=== PATIENT | female | born 1980 | race Caucasian/White ===

== ENCOUNTER 2016-11-25 12:23 | Outpatient (CLI) ==
[2015-11-24 13:59] VITALS: BMI 23.8
[2016-11-25 12:55] LABS: BASOPHILS % (AUTO) 0.3 % (0.0-3.0); EOSINOPHILS # (AUTO) 0.1 K/ul (0.0-0.7); EOSINOPHILS % (AUTO) 1.2 % (0.0-7.0); HEMATOCRIT 36.7 % (37.0-47.0); HEMOGLOBIN 12.5 g/dl (12.0-16.0); IMMATURE GRANULOCYTE % (AUTO) 0.3 % (0.0-5.0); LYMPHOCYTES # (AUTO) 2.5 K/uL (0.60-3.4); LYMPHOCYTES % (AUTO) 41.2 (10.0-50.0); MEAN CORPUSCULAR HEMOGLOBIN 30.3 pg (27.0-31.0); MEAN CORPUSCULAR HGB CONC 34.1 (31.8-35.4); MEAN CORPUSCULAR VOLUME 89.1 fl (81.0-99.0); MONOCYTES # (AUTO) 0.6 K/uL (0.4-2.0); MONOCYTES % (AUTO) 9.1 (0-10); NEUTROPHILS # (AUTO) 2.9 K/ul (2.0-6.9); NEUTROPHILS % (AUTO) 47.9; PLATELET COUNT 197 10^3/uL (140-440); RED BLOOD COUNT 4.12 10^6/ul (4.20-5.40); WHITE BLOOD COUNT 6.05 K/ul (4.6-10.2)
--- NOTE | 2016-11-25 13:05 | CT ---
EXAM: CT head without contrast. HISTORY: Slurred speech. Left ear numbness. Extremity numbness. COMPARISON: 09/20/2010. TECHNIQUE: Multiple axial images of the brain were obtained from the skull base through the vertex without intravenous contrast. FINDINGS: There is no intracranial hemorrhage or extraaxial collection. The hendricks-white differentia tion is maintained without evidence for acute large vascular territory infarction. The cortical sul ci and basal cisterns are well visualized. There is no hydrocephalus, mass effect, or midline shift . The paranasal sinuses and mastoid air cells are clear. The calvarium is intact. Since the prior study, there has been no significant interval change. IMPRESSION: No acute intracranial abnormality. Consider MRI if symptoms persist.
[2016-11-25 13:35] LABS: ALBUMIN 3.9 g/dL (3.4-5.0); ALBUMIN/GLOBULIN RATIO 1.18; BILIRUBIN,TOTAL 0.35 mg/dL (0.00-1.20); BUN/CREATININE RATIO 17.56; CALCIUM 8.7 mg/dL (8.2-10.2); CHOL/HDL RATIO 2.8 (4.5-5.5); CREATININE 0.74 mg/dL (0.60-1.30); TOTAL PROTEIN 7.2 g/dL (6.4-8.2)
== END 2016-11-25 12:24 | disposition home or self-care (01) ==
LOC: RAD 12:23
PROVIDERS: ATTEND Nurse Practitioner Family
DX: R07.89 Other chest pain (principal); R42 Dizziness and giddiness; R47.81 Slurred speech; R26.89 Other abnormalities of gait and mobility; R51 Headache
CPT/HCPCS: 36415; 80053; 80061; 84443; 85025; 93005; 93010

== ENCOUNTER 2016-12-27 12:38 | Emergency (ER) ==
[2016-12-27 12:38] VITALS: BMI 23.8
[2016-12-27 12:43] VITALS: BP 138/89; TEMP 97.6
[2016-12-27] MEDS ORDERED: NORCO 10-325 PO STA (12:53)
[2016-12-27] MEDS ORDERED: TORADOL IM STA (12:53)
--- NOTE | 2016-12-27 13:26 | ED.PDOC ---
General ED Provider: Dr. LINA PARSON Chief Complaint: Back Pain Stated Complaint: back pain coccyx Time Seen by Physician: 12:40 (seen with paulie at all times ) Mode of Arrival: Walk-In Information Source: Patient Exam Limitations: No limitations [facility] and Triage Documentation Reviewed and Agree: Yes Musculoskeletal Complaint Exam - Back Pain Complaint/Exam Mechanism of Injury: Reports: No known trauma Onset/Duration: 1 day Symptoms Are: Still present Timing: Constant Initial Severity: Moderate Current Severity: Moderate Location: Reports: Discrete Character: Reports: Aching Aggravating: Reports: None Alleviating: Reports: None Associated Signs and Symptoms: Denies: Swelling, Redness, Bruising, Fever, Weakness, Numbness, Tingling, Abdominal pain, Flank pain, Bladder incontinence, Bowel incontinence, Weight loss, Pain with weight bearing Related History: Reports: Similar episode TAD Risk Factors: Reports: None AAA Risk Factors: Reports: None Cauda Equina Risk Factors: Reports: None Epidural Abcess Risk Factors: Reports: None Related Surgical History: Reports: None Focal Tenderness: No Scoliosis: No Lordosis: No Kyphosis: No SLR Test: Right Negative, Left Negative Hip Motion Testing Pain: Right Negative, Left Negative Focal Weakness: Present: None Focal Sensory Loss: Present: None Gait: Present: Normal Differential Diagnoses: Strain, Sprain Review of Systems - Review Of Systems Constitutional: Reports: No symptoms Eyes: Reports: No symptoms Ears, Nose, Mouth, Throat: Reports: No symptoms Respiratory: Reports: No symptoms Cardiac: Reports: No symptoms GI: Reports: No symptoms : Reports: No symptoms Musculoskeletal: Reports: Back pain (coccyx) Skin: Reports: No symptoms Neurological: Reports: No symptoms Endocrine: Reports: No symptoms Hematologic/Lymphatic: Reports: No symptoms All Other Systems: Reviewed and Negative Past Medical History - Past Medical History Previously Healthy: Yes Endocrine: Reports: None Cardiovascular: Reports: None Respiratory: Reports: None Hematological: Reports: None Gastrointestinal: Reports: None Genitourinary: Reports: None Neuro/Psych: Reports: None Musculoskeletal: Reports: None Cancer: Reports: None Last Menstrual Period: none - Surgical History General Surgical History: Reports: Hysterectomy - Family History Family History: Reports: Unknown - Social History Smoking Status: Never smoker Hx Substance Use: No Alcohol Screening: None Physical Exam - Physical Exam Appearance: Well-appearing, No pain distress, Well-nourished Eyes: VICENTA, EOMI, Conjunctiva clear ENT: Ears normal, Nose normal, Oropharynx normal Respiratory: Airway patent, Breath sounds clear, Breath sounds equal, Respirations nonlabored Cardiovascular: RRR, Pulses normal, No rub, No murmur GI/: Soft, Nontender, No masses, Bowel sounds normal, No Organomegaly Musculoskeletal: Normal strength, ROM intact, No edema, No calf tenderness Skin: Warm, Dry, Normal color Neurological: Sensation intact, Motor intact, Reflexes intact, Cranial nerves intact, Alert, Oriented Psychiatric: Affect appropriate, Mood appropriate Critical Care Note - Critical Care Note Total Time (mins): 0 Course - Course Orders, Labs, Meds: Orders Category Date Time Status Hydrocodone Bit/Acetaminophen [Butler 10-325] MEDS 12/27/16 12:53 Stat 1 tab PO ONCE STA Ketorolac Tromethamine [Toradol] MEDS 12/27/16 12:53 Stat 60 mg IM ONCE STA CT PELVIS W/O CONTRAST Stat RADS 12/27/16 12:53 Ordered Medications Discontinued Medications Generic Name Dose Route Start Last Admin Trade Name Freq PRN Reason Stop Dose Admin Acetaminophen/Hydrocodone Bitart 1 tab 12/27/16 12:53 12/27/16 13:01 Butler 10-325 PO 12/27/16 12:54 1 tab ONCE STA Administration Ketorolac Tromethamine 60 mg 12/27/16 12:53 12/27/16 13:01 Toradol IM 12/27/16 12:54 60 mg ONCE STA Administration Vital Signs: Temp Pulse Resp BP Pulse Ox 12/27/16 12:38 97.6 F 99 H 18 138/89 99 Departure - Departure Time of Disposition: 14:00 Disposition: HOME SELF-CARE Discharge Problem: Backache, Coccyx pain Instructions: Coccyx Injury (ED) Condition: Good Pt referred to PMD for follow-up: Yes Additional Instructions: Please call your Family Physician as soon as possible to schedule a follow-up appointment. Prescriptions: Hydrocodone/Acetaminophen [Butler 10-325 Tablet] 1 each PO Q8HR #6 tablet Allergies/Adverse Reactions: Allergies erythromycin base Adverse Reaction (Verified 12/27/16 12:43) Home Medications: Ambulatory Orders Sumatriptan Succinate [Imitrex] 100 mg PO DIRECTED PRN 03/07/15 Clonazepam [Klonopin] 1 mg PO TID #90 12/21/15 Hydrocodone/Acetaminophen [Butler 10-325 Tablet] 1 each PO Q8HR #6 tablet Disposition Discussed With: Patient, Family
--- NOTE | 2016-12-27 13:34 | CT ---
EXAM: CT of the pelvis without contrast History: Coccyx pain. Technique: Multiplanar CT images through the pelvis were obtained without the administration of IV contrast Findings: Uterus is not seen. No bladder wall thickening. Moderate stool within the rectosigmoid colon. Visualized appendix is not inflamed. No acute fracture or dislocation. Bilateral hip joint spaces are preserved. Bilateral sacroiliac j oints are intact. No osseous abnormality of the coccyx. Impression: 1. No acute fracture. 2. Moderate stool seen distending the rectosigmoid colon.
== END 2016-12-27 13:40 | disposition home or self-care (01) ==
LOC: ED 12:38
DX: M54.5 Low back pain (principal)
CPT/HCPCS: 96372; 99282

== ENCOUNTER 2017-05-28 13:31 | Outpatient (CLI) | END 2017-05-28 13:32 | disposition home or self-care (01) | LOC: LAB 13:31 | PROVIDERS: ATTEND Nurse Practitioner Family | DX: F41.9 Anxiety disorder, unspecified (principal); R30.0 Dysuria | CPT/HCPCS: 36415; 80053; 80306; 81001; 84439; 84443; 85025; 87086; 87186 ==

== ENCOUNTER 2017-06-12 13:10 | Outpatient (CLI) ==
--- NOTE | 2017-06-12 13:36 | DI ---
EXAM: Four views of the lumbar spine HISTORY: Back pain with right-sided sciatica. COMPARISON: Lumbar spine x-ray 11/23/2012 and MRI 12/31/2012 FINDINGS: There is no acute compression fracture or subluxation. There is no lytic or blastic lesion . Vertebral body height and disc space are maintained. There is mild facet arthropathy. The soft ti ssues are unremarkable. IMPRESSION: Mild facet arthropathy
== END 2017-06-12 13:11 | disposition home or self-care (01) ==
LOC: RAD 13:10
PROVIDERS: ATTEND Nurse Practitioner Family
DX: M54.41 Lumbago with sciatica, right side (principal)

== ENCOUNTER 2017-06-19 06:59 | Outpatient (CLI) ==
--- NOTE | 2017-06-19 10:50 | MRI ---
EXAM: Lumbar spine MRI without contrast. HISTORY: Lumbar inflammatory spondyloarthropathy. COMPARISON: Lumbar spine radiographs 06/12/2018 and lumbar spine MRI 12/21/2012. TECHNIQUE: Multiplanar, multisequence MR images were acquired of the lumbar spine without contrast. FINDINGS: Conus medullaris ends at L1-2 and has normal signal intensity. There is minor mid lumbar levoscoliosis centered at L3-4. The lumbar vertebra are normal in height and intrinsic bone marrow s ignal. The intervertebral discs are normal in height and signal intensity. There are no paravertebra l masses. The sacroiliac joints are unremarkable. Several follicles are noted in each ovary which i s normal for the patient's age. T12-L1, L1-2: The intervertebral discs are normal. L2-3: The intervertebral disc is normal. There is minor left facet arthropathy with a tiny degenera tive cyst and tiny left facet effusion. L3-4: The intervertebral disc is normal. L4-5: There is a minor disc bulge that minimally narrows the inferior neural foramina bilaterally. There is mild right neural foraminal stenosis. L5-S1: There is a small posterior disc bulge without central canal stenosis. IMPRESSION: 1. Minimal lumbar degenerative spondylosis and minor lumbar levoscoliosis centered at L3-4. 2. No lumbar disc herniations, pars interarticularis defects or central canal stenosis.
== END 2017-06-19 07:00 | disposition home or self-care (01) ==
LOC: RAD 06:59
PROVIDERS: ATTEND Nurse Practitioner Family
DX: M46.96 Unspecified inflammatory spondylopathy, lumbar region (principal); M54.41 Lumbago with sciatica, right side

== ENCOUNTER 2018-02-05 22:19 | Emergency (ER) | payer OTHER ==
[2018-02-05] MEDS ORDERED: DECADRON 4 MG/ML SDV IM STA (22:32)
[2018-02-05] MEDS ORDERED: LIDOCAINE HCL 1% SDV IM STA (22:32)
[2018-02-05] MEDS ORDERED: ROCEPHIN IM STA (22:32)
[2018-02-05 22:34] VITALS: BP 143/87; TEMP 98.4; BMI 27.8
[2018-02-05] MEDS ORDERED: ALBUTEROL 0.042% NEB NEB STA (22:34)
--- NOTE | 2018-02-05 22:38 | ED.PDOC ---
General ED Provider: Dr. SYED NERI-ER Chief Complaint: Cough Stated Complaint: my sinuses hurt and im coughing Time Seen by Physician: 22:36 Mode of Arrival: Walk-In Information Source: Patient Exam Limitations: No limitations Primary Care Provider: FARRAH CRONIN Nursing and Triage Documentation Reviewed and Agree: Yes Does patient meet sepsis criteria?: No System Inflammatory Response Syndrome: Not Applicable Sepsis Protocol: For patient's 13 years and over: Temp is 96.8 and below OR 101 and greater Pulse >90 BPM Resp >20/minute Acutely Altered Mental Status Are patient's symptoms suggestive of a new infection, such as: -Pneumonia -Skin, Soft Tissue -Endocarditis -UTI -Bone, Joint Infection -Implantable Device -Acute Abdominal Infection -Wound Infection -Meningitis -Blood Stream Catheter Infection -Unknown Respiratory Complaint Exam - Respiratory Complaint/Exam Onset/Duration: 2 weeks Symptoms Are: Still present Initial Severity: Mild Current Severity: Moderate Location: Chest Character: Reports: Productive cough Aggravating: Reports: URI Associated Signs and Symptoms: Reports: URI, Nasal congestion, Sinus discomfort Related History: Reports: Similar episode History of Healthcare-Acquired Pneumonia: No Home Oxygen Use: No Recent Stress Test: No Recent Echo/LV Function: No Respiratory Distress: None Inadequate Respiratory Effort: No Dysphagia Present: No Stridor Present: No JVD Present: No Accessory Muscle Use: No Retractions: Not Present Diminished Breath Sounds: No Sinus Tenderness: None Grunting Respirations: No Kussmaul Respirations: No Differential Diagnoses: Pneumonia, Bronchitis, Sinusitis, URI Review of Systems - Review Of Systems Constitutional: Reports: No symptoms Eyes: Reports: No symptoms Ears, Nose, Mouth, Throat: Reports: Nose discharge Respiratory: Reports: Cough Cardiac: Reports: No symptoms GI: Reports: No symptoms : Reports: No symptoms Musculoskeletal: Reports: No symptoms Skin: Reports: No symptoms Neurological: Reports: No symptoms Endocrine: Reports: No symptoms Hematologic/Lymphatic: Reports: No symptoms All Other Systems: Reviewed and Negative Past Medical History - Past Medical History Previously Healthy: Yes Endocrine: Reports: None Cardiovascular: Reports: None Respiratory: Reports: None Hematological: Reports: None Gastrointestinal: Reports: None Genitourinary: Reports: None Neuro/Psych: Reports: None Musculoskeletal: Reports: None Cancer: Reports: None Last Menstrual Period: 2012 - Surgical History General Surgical History: Reports: Hysterectomy - Family History Family History: Reports: Unknown - Social History Smoking Status: Never smoker Hx Substance Use: No Alcohol Screening: None - Immunizations Tetanus Shot up to Date: Yes (2-3 years ago) Physical Exam - Physical Exam Appearance: Well-appearing, No pain distress, Well-nourished Eyes: VICENTA, EOMI, Conjunctiva clear ENT: Rhinorrhea Neck: Supple Respiratory: Airway patent, Breath sounds clear, Breath sounds equal, Respirations nonlabored Cardiovascular: RRR, Pulses normal, No rub, No murmur GI/: Soft, Nontender, No masses, Bowel sounds normal, No Organomegaly Musculoskeletal: Normal strength, ROM intact, No edema, No calf tenderness Skin: Warm, Dry, Normal color Neurological: Sensation intact, Motor intact, Reflexes intact, Cranial nerves intact, Alert, Oriented Psychiatric: Affect appropriate, Mood appropriate Interpretation - Radiology Interpretation Radiology Interpretation By: Radiologist Radiology Results: Negative Exam Interpreted: CT Scan Critical Care Note - Critical Care Note Total Time (mins): 0 Course - Course Hematology/Chemistry: 02/05/18 22:44 02/05/18 22:44 Orders, Labs, Meds: Lab Review 02/05/18 02/05/18 02/05/18 22:41 22:44 22:44 WBC 9.69 RBC 4.20 Hgb 12.8 Hct 37.5 MCV 89.3 MCH 30.5 MCHC 34.1 RDW Coeff of Enedelia 12.3 Plt Count 268 Immature Gran % (Auto) 0.4 Neut % (Auto) 58.9 Lymph % (Auto) 27.9 [place] % (Auto) 9.2 Eos % (Auto) 3.1 Baso % (Auto) 0.5 Immature Gran # (Auto) 0.0 Neut # (Auto) 5.7 Lymph # (Auto) 2.7 [place] # (Auto) 0.9 Eos # (Auto) 0.3 Baso # (Auto) 0.1 D-Dimer (Manual) 303.19 Sodium 139.9 Potassium 3.16 L Chloride 103.8 Carbon Dioxide 25.6 Anion Gap 13.66 BUN 8.1 Creatinine 0.70 Estimated GFR (MDRD) 95.00 BUN/Creatinine Ratio 11.57 Glucose 96.8 Calcium 9.52 Total Bilirubin 0.42 AST 31.2 ALT 15.5 Alkaline Phosphatase 52.0 Total Protein 8.22 H Albumin 4.72 Globulin 3.50 Albumin/Globulin Ratio 1.34 Orders Category Date Time Status NEBULIZER TREATMENT Stat CARDIO 02/05/18 22:34 Completed BLOOD CULTURE (ED ONLY) Stat LAB 02/05/18 22:44 Received CBC W/ AUTO DIFF Stat LAB 02/05/18 22:44 Completed COMPREHENSIVE METABOLIC PANEL Stat LAB 02/05/18 22:44 Completed D-DIMER Stat LAB 02/05/18 22:41 Completed Albuterol Sulfate 0.042% Neb [Albuterol 0.042% Neb] MEDS 02/05/18 22:34 Discontinued 1 vial NEB ONCE STA Ceftriaxone Sodium [Rocephin] MEDS 02/05/18 22:32 Discontinued 1 gm IM ONCE STA Dexamethasone 4 mg/ml Inj [Decadron 4 mg/ml Sdv] MEDS 02/05/18 22:32 Discontinued 8 mg IM ONCE STA Lidocaine HCl/Pf [Lidocaine HCl 1% Sdv] MEDS 02/05/18 22:32 Discontinued 2.1 ml IM ONCE STA Potassium Chloride [K-Dur] MEDS 02/05/18 23:12 Discontinued 40 meq PO ONCE STA CT CHEST W/O CONTRAST Stat RADS 02/05/18 22:[address] SINUSES W/O CONTRAST Stat RADS 02/05/18 22:33 Completed Medications Discontinued Medications Generic Name Dose Route Start Last Admin Trade Name Freq PRN Reason Stop Dose Admin Albuterol Sulfate 1 vial 02/05/18 22:34 02/05/18 23:05 Albuterol 0.042% Neb NEB 02/05/18 22:35 1 vial ONCE STA Administration Ceftriaxone Sodium 1 gm 02/05/18 22:32 02/05/18 23:06 Rocephin IM 02/05/18 22:33 1 gm ONCE STA Administration Dexamethasone Sodium Phosphate 8 mg 02/05/18 22:32 02/05/18 23:02 Decadron 4 Mg/Ml Sdv IM 02/05/18 22:33 8 mg ONCE STA Administration Lidocaine HCl 2.1 ml 02/05/18 22:32 02/05/18 23:06 Lidocaine Hcl 1% Sdv IM 02/05/18 22:33 2.1 ml ONCE STA Administration Potassium Chloride 40 meq 02/05/18 23:12 02/05/18 23:17 K-Dur PO 02/05/18 23:13 40 meq ONCE STA Administration Vital Signs: Temp Pulse Resp BP Pulse Ox 02/05/18 22:20 98.4 F 123 H 20 143/87 H 100 Departure - Departure Time of Disposition: 00:07 Disposition: HOME SELF-CARE Discharge Problem: Bronchitis Instructions: Acute Bronchitis (ED) Condition: Good Pt referred to PMD for follow-up: Yes IPMP verified?: No Additional Instructions: augmenitn 875mg bid x 7 days--medrol dose pack--f/u with pcp Allergies/Adverse Reactions: Allergies tramadol Allergy (Intermediate, Verified 02/05/18 22:27) Headache erythromycin base Adverse Reaction (Verified 02/05/18 22:28) Vomiting Home Medications: Ambulatory Orders Oxymetazoline HCl [Nasal [place]] 1 spray NS TID PRN 02/05/18 Disposition Discussed With: Patient, Family
[2018-02-05] MEDS ORDERED: K-DUR PO STA (23:12)
--- NOTE | 2018-02-05 23:21 | CT ---
Exam: CT of the chest without contrast History: Cough and chest congestion Technique: [address] of the chest without intravascular contrast FINDINGS: The lung windows show no pulmonary parenchymal abnormalities. Normal heart, great vessels and pericardium. No chest wall abnormalities are seen. No abnormalities of the upper abdomen. Impression: 1. Normal noncontrast CT chest.
--- NOTE | 2018-02-05 23:22 | CT ---
EXAM: CT sinuses without intravenous contrast 02/05/2018. Sagittal and coronal reformatted images o btained HISTORY: Sinus pressure COMPARISON: 11/25/2016 FINDINGS: The facial bones appear intact without evidence of fracture. Normal anatomic alignment is maintained. The paranasal sinuses are normally aerated. No fluid or mucosal thickening. The ostiomeatal units ap pear widely patent. The superficial soft tissues show no acute abnormality. IMPRESSION: No acute process.
== END 2018-02-06 00:10 | disposition home or self-care (01) ==
LOC: ED 22:19
DX: J40 Bronchitis, not specified as acute or chronic (principal)
CPT/HCPCS: 36415; 80053; 85025; 85379; 87040; 94640; 96372; 99283

== ENCOUNTER 2018-05-25 14:44 | Emergency (ER) | payer MEDICAID, OTHER ==
[2018-05-25 14:53] VITALS: BP 134/93; TEMP 98; BMI 29.1
[2018-05-25] MEDS: DECADRON 4 MG/ML SDV IM STA (15:35)
[2018-05-25] MEDS: LIDOCAINE HCL 1% SDV IM STA (15:36)
[2018-05-25] MEDS: ROCEPHIN IM STA (15:36)
--- NOTE | 2018-05-25 15:39 | DI ---
Exam: Two views of the chest. Comparison: CT chest performed 02/05/2018. Reason for exam: Cough. FINDINGS: No pneumothorax, pleural effusion, or focal consolidation. The cardiac silhouette is not enlarged. The imaged osseous structures appear grossly unremarkable without acute fracture. Impression: No acute cardiopulmonary process.
--- NOTE | 2018-05-25 15:48 | CT ---
Exam: CT sinuses without intravenous contrast. Comparison: 02/05/2018. Reason for exam: Pain. FINDINGS: Mild mucosal thickening is seen in the ethmoid sinuses. No discrete air fluid levels are seen in the maxillary sinuses, or sphenoid sinuses. The frontal sinuses do not appear pneumatized. This finding is not changed from previous study performed on 02/05/2018. Impression: Mucosal thickening in the ethmoid sinuses may represent sinus disease. No discrete air fluid levels are seen.
--- NOTE | 2018-05-25 16:13 | ED.PDOC ---
General ED Provider: Dr. LINA PARSON Chief Complaint: Respiratory Complaint Stated Complaint: cough, chronic has had nasal stuffiness till 03/05 Time Seen by Physician: 14:45 (nurses present lj) Mode of Arrival: Walk-In Information Source: Patient Exam Limitations: No limitations Primary Care Provider: DEVIN LAWRENCE Nursing and Triage Documentation Reviewed and Agree: Yes Does patient meet sepsis criteria?: No System Inflammatory Response Syndrome: Not Applicable Sepsis Protocol: For patient's 13 years and over: Temp is 96.8 and below OR 101 and greater Pulse >90 BPM Resp >20/minute Acutely Altered Mental Status Are patient's symptoms suggestive of a new infection, such as: -Pneumonia -Skin, Soft Tissue -Endocarditis -UTI -Bone, Joint Infection -Implantable Device -Acute Abdominal Infection -Wound Infection -Meningitis -Blood Stream Catheter Infection -Unknown EENT Complaint Exam - Nasal Complaint/Exam Onset/Duration: since february has had congestion Symptoms Are: Still present Timing: Intermittent Initial Severity: Mild Current Severity: Mild Location: Bilateral Aggravating: Reports: None Alleviating: Reports: None Associated Signs and Symptoms: Reports: Nasal congestion, Sinus pain, Nasal discharge. Denies: Bruising, Hematuria, Hematochezia, Foreign body, Abnormal coags Related History: Reports: Similar episode Nasal Surgical History: Reports: None Foreign Body Present: No Septal Hematoma: No Differential Diagnoses: Allergic Rhinitis, Sinusitis Review of Systems - Review Of Systems Constitutional: Reports: No symptoms Eyes: Reports: No symptoms Ears, Nose, Mouth, Throat: Reports: Nose discharge Respiratory: Reports: No symptoms Cardiac: Reports: No symptoms GI: Reports: No symptoms : Reports: No symptoms Musculoskeletal: Reports: No symptoms Skin: Reports: No symptoms Neurological: Reports: No symptoms Endocrine: Reports: No symptoms Hematologic/Lymphatic: Reports: No symptoms All Other Systems: Reviewed and Negative Past Medical History - Past Medical History Previously Healthy: Yes Endocrine: Reports: None Cardiovascular: Reports: None Respiratory: Reports: None Hematological: Reports: None Gastrointestinal: Reports: None Genitourinary: Reports: None Neuro/Psych: Reports: None Musculoskeletal: Reports: None Cancer: Reports: None Last Menstrual Period: na - Surgical History General Surgical History: Reports: Hysterectomy - Family History Family History: Reports: Unknown - Social History Smoking Status: Never smoker Hx Substance Use: No Alcohol Screening: None - Immunizations Tetanus Shot up to Date: Yes Physical Exam - Physical Exam Appearance: Well-appearing, No pain distress, Well-nourished Eyes: VICENTA, EOMI, Conjunctiva clear ENT: Rhinorrhea (sinuses maxillary tender ) Respiratory: Airway patent, Breath sounds clear, Breath sounds equal, Respirations nonlabored Cardiovascular: RRR, Pulses normal, No rub, No murmur GI/: Soft, Nontender, No masses, Bowel sounds normal, No Organomegaly Musculoskeletal: Normal strength, ROM intact, No edema, No calf tenderness Skin: Warm, Dry, Normal color Neurological: Sensation intact, Motor intact, Reflexes intact, Cranial nerves intact, Alert, Oriented Psychiatric: Affect appropriate, Mood appropriate Critical Care Note - Critical Care Note Total Time (mins): 0 Course - Course Hematology/Chemistry: 05/25/18 15:33 05/25/18 15:33 Orders, Labs, Meds: Lab Review 05/25/18 05/25/18 05/25/18 15:10 15:33 15:33 WBC 10.61 H RBC 4.67 Hgb 13.9 Hct 41.1 MCV 88.0 MCH 29.8 MCHC 33.8 RDW Coeff of Enedelia 11.9 Plt Count 282 Immature Gran % (Auto) 0.5 Neut % (Auto) 66.9 Lymph % (Auto) 22.0 [place] % (Auto) 6.2 Eos % (Auto) 3.9 Baso % (Auto) 0.5 Immature Gran # (Auto) 0.1 Neut # (Auto) 7.1 H Lymph # (Auto) 2.3 [place] # (Auto) 0.7 Eos # (Auto) 0.4 Baso # (Auto) 0.1 Sodium 137.2 Potassium 3.93 Chloride 103.7 Carbon Dioxide 26.6 Anion Gap 10.83 BUN 8.0 Creatinine 0.62 Estimated GFR (MDRD) 109.00 BUN/Creatinine Ratio 12.90 Glucose 100.6 Calcium 9.01 Total Bilirubin 0.31 AST 22.8 ALT 11.5 Alkaline Phosphatase 54.6 Total Protein 7.89 Albumin 4.63 Globulin 3.26 Albumin/Globulin Ratio 1.42 Influ A Molecular Assay Negative by naat Influ B Molecular Assay Negative by naat Orders Category Date Time Status CBC W/ AUTO DIFF Stat LAB 05/25/18 15:33 Completed COMPREHENSIVE METABOLIC PANEL Stat LAB 05/25/18 15:33 Completed FLU A/B MOLECULAR Stat LAB 05/25/18 15:10 Completed MOLECULAR GROUP A STREP Stat LAB 05/25/18 15:10 Completed Ceftriaxone Sodium [Rocephin] MEDS 05/25/18 15:11 Discontinued 1 gm IM ONCE STA Dexamethasone 4 mg/ml Inj [Decadron 4 mg/ml Sdv] MEDS 05/25/18 15:11 Discontinued 8 mg IM ONCE STA Lidocaine HCl/Pf [Lidocaine HCl 1% Sdv] MEDS 05/25/18 15:11 Discontinued 2.1 ml IM ONCE STA CHEST, 2 VIEWS PA & LAT Stat RADS 05/25/18 15:[address] SINUSES W/O CONTRAST Stat RADS 05/25/18 15:11 Completed Medications Discontinued Medications Generic Name Dose Route Start Last Admin Trade Name Ally DILLARDN Reason Stop Dose Admin Ceftriaxone Sodium 1 gm 05/25/18 15:11 05/25/18 15:36 Rocephin IM 05/25/18 15:12 1 gm ONCE STA Administration Dexamethasone Sodium Phosphate 8 mg 05/25/18 15:11 05/25/18 15:35 Decadron 4 Mg/Ml Sdv IM 05/25/18 15:12 8 mg ONCE STA Administration Lidocaine HCl 2.1 ml 05/25/18 15:11 05/25/18 15:36 Lidocaine Hcl 1% Sdv IM 05/25/18 15:12 5 ml ONCE STA Administration Vital Signs: Temp Pulse Resp BP Pulse Ox 05/25/18 14:45 98 F 88 16 134/93 H 98 Departure - Departure Time of Disposition: 16:13 Disposition: HOME SELF-CARE Discharge Problem: Sinusitis Qualifiers: Sinusitis location: maxillary Recurrence: non-recurrent Instructions: Sinusitis (ED), Rhinosinusitis (ED), Rhinosinusitis (DC) Condition: Good Pt referred to PMD for follow-up: Yes IPMP verified?: No Additional Instructions: Please call your Family Physician as soon as possible to schedule a follow-up appointment. Prescriptions: Amoxicillin 500 mg PO Q8HR #30 tablet Prednisone 10 mg PO DAILYWM #7 tablet Allergies/Adverse Reactions: Allergies tramadol Allergy (Intermediate, Verified 05/25/18 14:55) Headache erythromycin base Adverse Reaction (Verified 05/25/18 14:55) Vomiting Home Medications: Ambulatory Orders Amoxicillin 500 mg PO Q8HR #30 tablet 05/25/18 Prednisone 10 mg PO DAILYWM #7 tablet 05/25/18
== END 2018-05-25 16:17 | disposition home or self-care (01) ==
LOC: ED 14:44
DX: J01.00 Acute maxillary sinusitis, unspecified (principal)
CPT/HCPCS: 36415; 80053; 85025; 87502; 87651; 96372; 99283

== ENCOUNTER 2018-08-11 07:40 | Emergency (ER) ==
[2018-08-11 07:46] VITALS: BP 146/94; TEMP 98.2; BMI 34.2
--- NOTE | 2018-08-11 08:22 | ED.PDOC ---
General ED Provider: Dr. SYED DEAN Chief Complaint: Headache Stated Complaint: Headache. Patient states she had an onset of migraine headache on Friday. Describes as being orbital pain that radiates to forehead and then to top/back of head. Complains of nausea but no emesis. Severe light sensitivity. 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 Has not had a headache for some time.. Time Seen by Physician: 08:10 Mode of Arrival: Walk-In Information Source: Patient, Family Exam Limitations: No limitations Primary Care Provider: DEVIN LAWRENCE Nursing and Triage Documentation Reviewed and Agree: Yes Does patient meet sepsis criteria?: No System Inflammatory Response Syndrome: Not Applicable Sepsis Protocol: For patient's 13 years and over: Temp is 96.8 and below OR 101 and greater Pulse >90 BPM Resp >20/minute Acutely Altered Mental Status Are patient's symptoms suggestive of a new infection, such as: -Pneumonia -Skin, Soft Tissue -Endocarditis -UTI -Bone, Joint Infection -Implantable Device -Acute Abdominal Infection -Wound Infection -Meningitis -Blood Stream Catheter Infection -Unknown Neurological Complaint Exam - Headache Complaint/Exam Onset: Sudden Duration: 24 hrs Symptoms Are: Worse Timing: Constant Episodes Lasting: Days (1) Worst Headache Ever: No Initial Severity: Moderate Current Severity: Severe Location: Diffuse, Frontal, Temporal, Parietal Character: Reports: Throbbing, Pressure, Migraine Aggravating: Reports: Bright lights Alleviating: Reports: None Associated Signs and Symptoms: Reports: Dizziness, Nausea Related History: Reports: Similar episode Related Surgical History: Reports: None SAH Risk Factors: Reports: None Meningitis Risk Factors: Reports: None SDH Risk Factors: Reports: None Temporal Arteritis Risk Factors: Reports: None Normal Head CT Within Last 12 Months: Yes Sinus Tenderness: Present: None TMJ Tenderness: Present: None Meningeal Signs Positive: No Pain on Passive Flexion-Positive Kernig's: No ROM Limited In: No Limitiations Focal Weakness: Present: None Focal Sensory Loss: Present: None Gait: Normal Nystagmus Present: No Gag Reflex Present: Yes [id number]: Normal Findings Romberg Test Positive: No Heel to Toe Normal: Yes Differential Diagnoses: Migraine Review of Systems - Review Of Systems Constitutional: Reports: No symptoms Eyes: Reports: No symptoms Ears, Nose, Mouth, Throat: Reports: No symptoms Respiratory: Reports: No symptoms Cardiac: Reports: No symptoms GI: Reports: No symptoms : Reports: No symptoms Musculoskeletal: Reports: No symptoms Skin: Reports: No symptoms Neurological: Reports: No symptoms Endocrine: Reports: No symptoms Hematologic/Lymphatic: Reports: No symptoms All Other Systems: Reviewed and Negative Past Medical History - Past Medical History Previously Healthy: Yes Endocrine: Reports: None Cardiovascular: Reports: None Respiratory: Reports: None Hematological: Reports: None Gastrointestinal: Reports: None Genitourinary: Reports: None Neuro/Psych: Reports: None Musculoskeletal: Reports: None Cancer: Reports: None Last Menstrual Period: hysterectomy - Surgical History General Surgical History: Reports: Hysterectomy - Family History Family History: Reports: Unknown - Social History Smoking Status: Never smoker Hx Substance Use: No Alcohol Screening: None Physical Exam - Physical Exam Appearance: Ill-appearing Ill-appearing: Moderate Pain Distress: Moderate Eyes: VICENTA, EOMI, Conjunctiva clear ENT: Ears normal, Nose normal, Oropharynx normal Neck: Supple Respiratory: Airway patent, Breath sounds clear, Breath sounds equal, Respirations nonlabored Cardiovascular: RRR, Pulses normal, No rub, No murmur GI/: Soft, Nontender, No masses, Bowel sounds normal, No Organomegaly Musculoskeletal: Normal strength, ROM intact, No edema, No calf tenderness Skin: Warm, Dry, Normal color Neurological: Sensation intact, Motor intact, Reflexes intact, Cranial nerves intact, Alert, Oriented Psychiatric: Affect appropriate, Mood appropriate Critical Care Note - Critical Care Note Total Time (mins): 60 Course - Course Hematology/Chemistry: 08/11/18 08:32 08/11/18 08:32 Orders, Labs, Meds: Lab Review 08/11/18 08/11/18 08:32 08:32 WBC 7.35 RBC 4.24 Hgb 13.1 Hct 38.3 MCV 90.3 MCH 30.9 MCHC 34.2 RDW Coeff of Enedelia 12.5 Plt Count 227 Immature Gran % (Auto) 0.3 Neut % (Auto) 53.2 Lymph % (Auto) 30.2 [place] % (Auto) 8.0 Eos % (Auto) 7.6 H Baso % (Auto) 0.7 Immature Gran # (Auto) 0.0 Neut # (Auto) 3.9 Lymph # (Auto) 2.2 [place] # (Auto) 0.6 Eos # (Auto) 0.6 Baso # (Auto) 0.1 Sodium 139.6 Potassium 3.60 Chloride 104.6 Carbon Dioxide 26.7 Anion Gap 11.90 BUN 8.0 Creatinine 0.59 L Estimated GFR (MDRD) 115.00 BUN/Creatinine Ratio 13.55 Glucose 107.5 H Calcium 9.16 Total Bilirubin 0.27 AST 17.4 ALT 12.6 Alkaline Phosphatase 50.8 Total Protein 7.36 Albumin 4.28 Globulin 3.08 Albumin/Globulin Ratio 1.38 Orders Category Date Time Status CBC W/ AUTO DIFF Stat LAB 08/11/18 08:32 Completed CMP [COMPREHENSIVE METABOLIC PANEL] Stat LAB 08/11/18 08:32 Completed Ondansetron [Zofran Odt] MEDS 08/11/18 08:23 Discontinued 4 mg PO ONCE STA Sumatriptan Succinate [Imitrex] MEDS 08/11/18 08:24 Discontinued [address] SINUSES W/O CONTRAST Stat RADS 08/11/18 09:09 Completed Medications Discontinued Medications Generic Name Dose Route Start Last Admin Trade Name Freq PRN Reason Stop Dose Admin Ondansetron HCl 4 mg 08/11/18 08:23 08/11/18 08:33 Zofran Odt PO 08/11/18 08:24 4 mg ONCE STA Administration Sumatriptan Succinate 6 mg 08/11/18 08:24 08/11/18 08:35 Imitrex SUBCUT 08/11/18 08:25 6 mg ONCE STA Administration Vital Signs: Temp Pulse Resp BP Pulse Ox 08/11/18 07:40 98.2 F 94 H 20 146/94 H 99 Departure - Departure Time of Disposition: 10:15 Disposition: HOME SELF-CARE Discharge Problem: Migraine, Sinusitis Instructions: Migraine Headache (ED), Sinusitis (ED) Condition: Good Pt referred to PMD for follow-up: Yes (1 week) IPMP verified?: No Additional Instructions: Home Rest Meds as directed Fill Prescriptions Follow up PCP Finish home meds (antibiotics) Allergies/Adverse Reactions: Allergies tramadol Allergy (Intermediate, Verified 08/11/18 07:48) Headache erythromycin base Adverse Reaction (Verified 08/11/18 07:48) Vomiting Home Medications: Ambulatory Orders Clarithromycin 500 mg PO BID 08/11/18 Sumatriptan Succinate [Imitrex] 50 mg PO TID PRN #10 tablet 08/11/18 Disposition Discussed With: Patient, Family
[2018-08-11] MEDS ORDERED: ZOFRAN ODT PO STA (08:23)
[2018-08-11] MEDS ORDERED: IMITREX SUBCUT STA (08:24)
--- NOTE | 2018-08-11 10:02 | CT ---
EXAM: CT sinuses without contrast HISTORY: Ethmoid sinusitis with recurrent symptoms COMPARISON: 05/25/2018 TECHNIQUE: CT sinuses performed without intravenous contrast. Coronal and sagittal reformatted imag es obtained. FINDINGS: The mastoid air cells clear. Temporal mandibular joints normally aligned. No fracture. The mild mucosal thickening bilateral maxillary sinuses. Minimal mucosal thickening sphenoid sinuses . Mild mucosal thickening ethmoid air cells. Right frontal sinus hypoplastic and left frontal sinus aplastic. No air-fluid levels in the paranasal sinuses. Bilateral ostiomeatal units appear occlude d. Mucoperiosteal thickening of the nasal cavity. Dental ana suggested. IMPRESSION: 1. Sinusitis and rhinitis. 2. Dental ana suggested. Recommend correlation with dental examination.
== END 2018-08-11 10:36 | disposition home or self-care (01) ==
LOC: ED 07:40
DX: G43.909 Migraine, unspecified, not intractable, without status migrainosus (principal); R11.0 Nausea; R42 Dizziness and giddiness; J32.9 Chronic sinusitis, unspecified
CPT/HCPCS: 36415; 80053; 85025; 96372; 99283

== ENCOUNTER 2018-09-21 16:02 | Emergency (ER) ==
[2018-09-21 16:09] VITALS: BP 139/96; TEMP 99.6; BMI 29.9
[2018-09-21] MEDS ORDERED: TORADOL IM STA (16:17)
--- NOTE | 2018-09-21 16:45 | CT ---
EXAM: CT of the abdomen pelvis without contrast History: Right flank pain. Comparison: CT abdomen 10/04/2007 Technique: Multiplanar CT images through the abdomen pelvis were obtained without the administration of IV contrast Findings: Lung bases are clear. No acute osseous abnormalities. No gallstones identified by CT. No focal liver or splenic lesions. No peripancreatic inflammation. Adrenal glands are unremarkable. No intra renal calculi. There is a 2 mm calculus at the right UVJ causing moderate to severe right hydronephrosis and hydroureter. There is mild right perinephric st randing. No bowel obstruction. No free air and no ascites. The visualized appendix is not dilated or inflamed. Bladder is decompressed. Scattered colonic stool. Uterus is not seen and likely has b een surgically removed. No abdominal aortic aneurysm. Impression: 2 mm calculus at the right UVJ causing moderate to severe right hydronephrosis and hydro ureter.
[2018-09-21] MEDS ORDERED: ROCEPHIN 1 GM in SODIUM CHLORIDE 50 ML IV STA (17:44)
[2018-09-21] MEDS ORDERED: FLOMAX PO STA (17:45)
--- NOTE | 2018-09-21 17:47 | ED.PDOC ---
General ED Provider: Dr. LINA PARSON Chief Complaint: Back Pain Stated Complaint: right flank pain started today. Time Seen by Physician: 16:03 (seen with nurse at all times ) Mode of Arrival: Walk-In Information Source: Patient Exam Limitations: No limitations Primary Care Provider: DEVIN LAWRENCE Nursing and Triage Documentation Reviewed and Agree: Yes Does patient meet sepsis criteria?: No System Inflammatory Response Syndrome: Not Applicable Sepsis Protocol: For patient's 13 years and over: Temp is 96.8 and below OR 101 and greater Pulse >90 BPM Resp >20/minute Acutely Altered Mental Status Are patient's symptoms suggestive of a new infection, such as: -Pneumonia -Skin, Soft Tissue -Endocarditis -UTI -Bone, Joint Infection -Implantable Device -Acute Abdominal Infection -Wound Infection -Meningitis -Blood Stream Catheter Infection -Unknown Complaint Exam - Complaint/Exam Patient Complains of: Reports: Pain (right flank) Onset/Duration: today Symptoms Are: Still present Timing: Constant Episodes of Voiding Over Last 12 Hours: 3 Initial Severity: Moderate Current Severity: Moderate Location of Pain: Reports: Right, Flank, Suprapubic Character: Reports: Colicky Aggravating: Reports: Movement, Urination Alleviating: Reports: None Associated Signs and Symptoms: Reports: Back pain, Dysuria. Denies: Diaphoresis , Fever, Hematuria, Constipation, Blood in stool, Rectal pain, Appetite change, Nausea, Vomiting, Decreased urine output, Increased urine frequency, Increased thirst, Decreased activity, Lethargy, Abdominal Pain, Bubble bath use, Vaginal bleeding, Vaginal discharge, Genital swelling, Genital blisters, Retained foreign body : 2 Para: 2 Hx Total # of Abortions (Spontaneous & Elective): 0 Last Voided: 1 hr ago Ectopic Risk Factors: Reports: None, Maternal age >30. Denies: Hx of Salpingitis, Prior ectopic , Prior pelvic surgery, Assist reprod. technique, Tubal ligation, Elective <2 week Ovarian Torsion Risk Factors: Reports: Reproductive age. Denies: Ovarian cysts , Ovarian tumors, Tubal ligation, Hysterectomy, w/ hx PID Surgical Obstruction Risk Factors: Reports: None RH Status: Unknown Related Surgical History: Reports: None Differential Diagnoses: Renal Colic, Ureteral Stone, UTI Review of Systems - Review Of Systems Constitutional: Reports: No symptoms Eyes: Reports: No symptoms Ears, Nose, Mouth, Throat: Reports: No symptoms Respiratory: Reports: No symptoms Cardiac: Reports: No symptoms GI: Reports: No symptoms : Reports: Dysuria, Flank pain (right) Musculoskeletal: Reports: No symptoms Skin: Reports: No symptoms Neurological: Reports: No symptoms Endocrine: Reports: No symptoms Hematologic/Lymphatic: Reports: No symptoms All Other Systems: Reviewed and Negative Past Medical History - Past Medical History Previously Healthy: Yes Endocrine: Reports: None Cardiovascular: Reports: None Respiratory: Reports: None Hematological: Reports: None Gastrointestinal: Reports: None Genitourinary: Reports: None Neuro/Psych: Reports: None Musculoskeletal: Reports: None Cancer: Reports: None Last Menstrual Period: hysterectomy - Surgical History General Surgical History: Reports: Hysterectomy - Family History Family History: Reports: Unknown - Social History Smoking Status: Never smoker Hx Substance Use: No Alcohol Screening: None Physical Exam - Physical Exam Appearance: Ill-appearing Ill-appearing: Mild Pain Distress: Moderate Eyes: VICENTA, EOMI, Conjunctiva clear ENT: Ears normal, Nose normal, Oropharynx normal Respiratory: Airway patent, Breath sounds clear, Breath sounds equal, Respirations nonlabored Cardiovascular: RRR, Pulses normal, No rub, No murmur GI/: Tender (right flank ) Musculoskeletal: Normal strength, ROM intact, No edema, No calf tenderness Skin: Warm, Dry, Normal color Neurological: Sensation intact, Motor intact, Reflexes intact, Cranial nerves intact, Alert, Oriented Psychiatric: Affect appropriate, Mood appropriate Interpretation - Radiology Interpretation Radiology Interpretation By: Radiologist Radiology Results: Positive (2mm stone right uvj) Physician Notification - Case Discussed Physician Notified: [email or web address] Time of Notification: 18:16 (transfer ) Critical Care Note - Critical Care Note Total Time (mins): 0 Course - Course Hematology/Chemistry: 09/21/18 16:22 09/21/18 16:22 Orders, Labs, Meds: Lab Review 09/21/18 09/21/18 09/21/18 16:22 16:22 16:23 WBC 17.84 H RBC 4.32 Hgb 13.2 Hct 39.1 MCV 90.5 MCH 30.6 MCHC 33.8 RDW Coeff of Enedelia 12.3 Plt Count 283 Immature Gran % (Auto) 0.6 Neut % (Auto) 75.2 Lymph % (Auto) 13.7 [place] % (Auto) 8.0 Eos % (Auto) 2.2 Baso % (Auto) 0.3 Immature Gran # (Auto) 0.1 Neut # (Auto) 13.4 H Lymph # (Auto) 2.4 [place] # (Auto) 1.4 Eos # (Auto) 0.4 Baso # (Auto) 0.1 Sodium 139.0 Potassium 3.56 Chloride 105.0 Carbon Dioxide 24.2 Anion Gap 13.36 BUN 10.8 Creatinine 0.88 Estimated GFR (MDRD) 73.00 BUN/Creatinine Ratio 12.27 Glucose 111.6 H Calcium 9.21 Total Bilirubin 0.44 AST 24.1 ALT 13.6 Alkaline Phosphatase 61.1 Total Protein 7.63 Albumin 4.75 Globulin 2.88 Albumin/Globulin Ratio 1.64 Urine Color Yellow Urine Clarity Slightly Urine pH 6.0 Ur Specific [place] 1.025 Urine Protein 1+ Urine Glucose (UA) Negative Urine Ketones Negative Urine Blood Trace-intact Urine Nitrite Negative Urine Bilirubin Negative Urine Urobilinogen 0.2 Ur Leukocyte Esterase Negative Urine Microscopic RBC 0-2 Ur Squamous Epith Cells Tntc Urine Bacteria Trace Orders Category Date Time Status ED IV/MEDIPORT/POWERPORT .ONCE EMERGENCY 09/21/18 17:44 Active BLOOD CULTURE Stat LAB 09/21/18 18:00 Received CBC W/ AUTO DIFF Stat LAB 09/21/18 16:22 Completed COMPREHENSIVE METABOLIC PANEL Stat LAB 09/21/18 16:22 Completed LACTIC ACID Stat LAB 09/21/18 17:55 Received PROCALCITONIN Stat LAB 09/21/18 16:22 Received URINALYSIS C & S IF INDICATED Stat LAB 09/21/18 16:23 Completed 0.9 % Sodium Chloride [Saline Flush] MEDS 09/21/18 17:44 Ordered 1 syr IVF PRN PRN Ceftriaxone Sodium [Rocephin] 1 gm MEDS 09/21/18 17:44 Active 0.9 % Sodium Chloride [Sodium Chloride] 50 ml IV ONCE Ketorolac Tromethamine [Toradol] MEDS 09/21/18 16:17 Discontinued 60 mg IM ONCE STA Tamsulosin HCl [Flomax] MEDS 09/21/18 17:45 Discontinued 0.4 mg PO ONCE STA CT ABD/PEL WO RENAL STONE PROT Stat RADS 09/21/18 16:16 Completed Medications Generic Name Dose Route Start Last Admin Trade Name Freq PRN Reason Stop Dose Admin Ceftriaxone Sodium 1 gm/ 50 mls @ 75 mls/hr 09/21/18 17:44 09/21/18 18:06 Sodium Chloride IV 09/21/18 18:23 75 mls/hr ONCE STA Administration Sodium Chloride 1 syr 09/21/18 17:44 09/21/18 18:06 Saline Flush IVF 1 syr PRN PRN Administration To flush IV Discontinued Medications Generic Name Dose Route Start Last Admin Trade Name Freq PRN Reason Stop Dose Admin Ketorolac Tromethamine 60 mg 09/21/18 16:17 09/21/18 16:36 Toradol IM 09/21/18 16:18 60 mg ONCE STA Administration Tamsulosin HCl 0.4 mg 09/21/18 17:45 09/21/18 18:05 Flomax PO 09/21/18 17:46 0.4 mg ONCE STA Administration Vital Signs: Temp Pulse Resp BP Pulse Ox 09/21/18 16:03 99.6 F 96 H 16 139/96 H 100 Departure - Departure Time of Disposition: 19:00 Disposition: TSF SHORT-TRM HOSP Discharge Problem: Pyelonephritis, Hydronephrosis with obstructing calculus Instructions: Kidney Stones (ED), Urinary Tract Infection in Women (ED), Renal Colic (ED), Flank Pain (ED) Condition: Good Pt referred to PMD for follow-up: Yes IPMP verified?: No Allergies/Adverse Reactions: Allergies tramadol Allergy (Intermediate, Verified 09/21/18 16:10) Headache erythromycin base Adverse Reaction (Verified 09/21/18 16:10) Vomiting Home Medications: Ambulatory Orders Sumatriptan Succinate [Imitrex] 50 mg PO TID PRN #10 tablet 08/11/18 Transfer Form Completed: Yes Disposition Discussed With: Patient
[2018-09-21] MEDS ORDERED: ROCEPHIN ONE (17:50)
[2018-09-21] MEDS ORDERED: ZOFRAN 4 MG/2 ML IVP STA (18:34)
[2018-09-21] MEDS ORDERED: MORPHINE 4 MG/ML SYRINGE IVP STA (18:34)
== END 2018-09-21 19:19 | disposition short-term general hospital (02) ==
LOC: ED 16:02
DX: N13.6 Pyonephrosis (principal)
CPT/HCPCS: 36415; 74176; 80053; 81001; 83605; 84145; 85025; 87040; 96365; 96372; 96375; 99285

== ENCOUNTER 2018-09-21 19:20 | Outpatient (CLI) ==
[2018-09-21 16:09] VITALS: BMI 29.9
== END 2018-09-21 19:44 | disposition short-term general hospital (02) ==
LOC: AMBL 19:20
PROVIDERS: ATTEND Family Medicine
DX: N13.2 Hydronephrosis with renal and ureteral calculous obstruction (principal); R10.9 Unspecified abdominal pain; M54.9 Dorsalgia, unspecified

== ENCOUNTER 2018-12-31 18:19 | Emergency (ER) ==
[2018-12-31 18:22] VITALS: BP 155/94; TEMP 98.5; BMI 31.6
--- NOTE | 2018-12-31 19:41 | ED.PDOC ---
General ED Provider: Dr. JUAQUIN PHILIPPE Chief Complaint: Nausea/Vomiting Stated Complaint: Patient is a 38 year old female who comes to the ER with a 3 days history of frontal headache with nasal drip with associated Nausea. Denies any fever. Time Seen by Physician: 19:40 Mode of Arrival: Walk-In Information Source: Patient Nursing and Triage Documentation Reviewed and Agree: Yes Does patient meet sepsis criteria?: No System Inflammatory Response Syndrome: Not Applicable Sepsis Protocol: For patient's 13 years and over: Temp is 96.8 and below OR 101 and greater Pulse >90 BPM Resp >20/minute Acutely Altered Mental Status Are patient's symptoms suggestive of a new infection, such as: -Pneumonia -Skin, Soft Tissue -Endocarditis -UTI -Bone, Joint Infection -Implantable Device -Acute Abdominal Infection -Wound Infection -Meningitis -Blood Stream Catheter Infection -Unknown EENT Complaint Exam - Nasal Complaint/Exam Onset/Duration: 3 days Symptoms Are: Still present Timing: Constant Initial Severity: Moderate Current Severity: Moderate Location: Bilateral (Nasal Drainage ) Aggravating: Reports: None Alleviating: Reports: None Associated Signs and Symptoms: Reports: Nasal discharge. Denies: Nasal congestion, Bruising, Hematuria, Hematochezia, Sinus pain, Foreign body, Abnormal coags Differential Diagnoses: Sinusitis Review of Systems - Review Of Systems Constitutional: Reports: No symptoms Eyes: Reports: No symptoms Ears, Nose, Mouth, Throat: Reports: Nose discharge Respiratory: Reports: No symptoms, Cough Cardiac: Reports: No symptoms GI: Reports: Nausea Musculoskeletal: Reports: No symptoms Skin: Reports: No symptoms Neurological: Reports: Headache (Frontal and maxillary ) Endocrine: Reports: No symptoms Hematologic/Lymphatic: Reports: No symptoms All Other Systems: Reviewed and Negative Past Medical History - Past Medical History Previously Healthy: Yes Endocrine: Reports: None Cardiovascular: Reports: None Respiratory: Reports: None Hematological: Reports: None Gastrointestinal: Reports: None Genitourinary: Reports: None Neuro/Psych: Reports: None Musculoskeletal: Reports: None Cancer: Reports: None Last Menstrual Period: HYSTERECTOMY - Surgical History General Surgical History: Reports: Hysterectomy - Family History Family History: Reports: Unknown - Social History Smoking Status: Never smoker Hx Substance Use: No Alcohol Screening: None - Immunizations Tetanus Shot up to Date: Yes Physical Exam - Physical Exam Appearance: Ill-appearing Ill-appearing: Mild Pain Distress: Mild Eyes: VICENTA, EOMI, Conjunctiva clear ENT: Ears normal, Oropharynx normal (with post nasal drip ), Rhinorrhea Neck: Supple Respiratory: Airway patent Cardiovascular: RRR, Pulses normal, No rub, No murmur Skin: Warm, Dry Neurological: Alert, Oriented Psychiatric: Affect appropriate, Mood appropriate Critical Care Note - Critical Care Note Total Time (mins): 0 Course - Course Vital Signs: Temp Pulse Resp BP Pulse Ox 12/31/18 18:19 98.5 F 59 L 18 155/94 H 98 Departure - Departure Time of Disposition: 19:50 Disposition: HOME SELF-CARE Discharge Problem: PND (post-nasal drip) Sinusitis Qualifiers: Sinusitis location: maxillary Chronicity: acute Recurrence: non-recurrent Qualified Code(s): J01.00 - Acute maxillary sinusitis, unspecified Instructions: Sinusitis (ED), Postnasal Drip (DC) Condition: Stable Pt referred to PMD for follow-up: Yes IPMP verified?: No Additional Instructions: Take medications as prescribed Follow up wit PCP iin 3 days. Prescriptions: Amoxicillin/Potassium Clav [Augmentin 875-125 mg Tab] 1 tab PO Q12HR #20 tablet Ondansetron [Zofran Odt] 4 mg PO Q8H #20 tab.rapdis Prednisone 20 mg PO DAILYWM #5 tablet Allergies/Adverse Reactions: Allergies tramadol Allergy (Intermediate, Verified 12/31/18 18:21) Headache erythromycin base Adverse Reaction (Verified 12/31/18 18:21) Vomiting Home Medications: Ambulatory Orders Amoxicillin/Potassium Clav [Augmentin 875-125 mg Tab] 1 tab PO Q12HR #20 tablet 12/31/18 Ondansetron [Zofran Odt] 4 mg PO Q8H #20 tab.rapdis 12/31/18 Prednisone 20 mg PO DAILYWM #5 tablet 12/31/18
== END 2018-12-31 19:50 | disposition home or self-care (01) ==
LOC: ED 18:19
DX: J01.00 Acute maxillary sinusitis, unspecified (principal); R09.82 Postnasal drip; R11.2 Nausea with vomiting, unspecified
CPT/HCPCS: 99282